=== PATIENT | male | born 1955 | race Hispanic/Latino ===

== ENCOUNTER 2020-07-28 22:22 | Observation (INO) | payer BC ==
[2020-07-28 23:43] LABS: Absolute Lymphocytes (CBC) 1.1 K/uL (0.7-4.9); Hematocrit 39.1 % (39.6-49.0); Lymphocytes % 25.1 % (15.3-44.8); MPV 8.6 fL (7.6-11.3); RBC Red Blood Cell Count 4.16 M/uL (4.33-5.43)
[2020-07-28 23:53] LABS: Protime INR 1.19
[2020-07-28] MEDS ORDERED: ASPIRIN 81 MG CHEWABLE TABLET ONE (23:53)
[2020-07-28 23:59] LABS: ALT/SGPT 25 U/L (12-78); AST/SGOT 16 U/L (15-37); Albumin 4.1 g/dL (3.4-5.0); Alkaline Phosphatase 76 U/L (45-117); BUN Blood Urea Nitrogen 11 mg/dL (7-18); Bicarbonate 31 mmol/L (21-32); Bilirubin Direct 0.1 mg/dL (0-0.2); Bilirubin Total 0.4 mg/dL (0.2-1.0); Glucose Level 94 mg/dL (74-106); Magnesium 2.4 mg/dL (1.8-2.4); NT PRO-BNP 33 pg/mL (<125); Protein, Total 7.6 g/dL (6.4-8.2); Sodium Level 140 mmol/L (136-145); Troponin (Emerg Dept Use Only) < 0.02 ng/mL (0.0-0.045)
--- NOTE | 2020-07-29 00:25 | EDPHYS ---
Physician Documentation [facility] Name: Chirag Chan Age: 64 yrs Sex: Male : 1955 Arrival Date: 07/28/2020 Time: 22:29 Bed 7 Private MD: ED Physician Yaakov Madrid HPI: 07/28 23:19 This 64 yrs old Male presents to ER via Ambulatory with complaints of High cp Blood Pressure. 23:19 The patient has elevated blood pressure and discovered this at home, with a home cp device. Onset: The symptoms/episode began/occurred this evening. Associated signs and symptoms: Pertinent positives: chest pain. 23:19 Severity of symptoms: At its worst the blood pressure was 170 mm Hg, in the emergency cp department the blood pressure is improved, 149 mm Hg. Historical: - Allergies: 22:50 No Known Allergies; bb - Home Meds: 22:50 Lisinopril Oral [Active]; bb - PMHx: 22:50 Hypertension; bb - PSHx: 22:50 None; bb - Immunization history:: Adult Immunizations up to date. - Social history:: Smoking status: Patient denies any tobacco usage or history of. Patient uses alcohol, occasionally. Patient/guardian denies using street drugs. ROS: 23:25 Constitutional: Negative for body aches, chills, fever, poor PO intake. cp 23:25 Eyes: Negative for injury, pain, redness, and discharge. cp 23:25 ENT: Negative for ear pain, difficulty swallowing, difficulty handling secretions. 23:25 Cardiovascular: Positive for chest pain, Negative for edema, palpitations. 23:25 Respiratory: Negative for cough, shortness of breath, wheezing. 23:25 Abdomen/GI: Negative for abdominal pain, nausea, vomiting, and diarrhea. 23:25 Back: Negative for radiated pain. 23:25 Neuro: Negative for altered mental status, headache, syncope, weakness. 23:25 All other systems are negative. Exam: 23:05 ECG was reviewed by the Attending Physician. cp 23:30 Constitutional: The patient appears in no acute distress, alert, awake, cp non-diaphoretic, non-toxic, well developed, well nourished. 23:30 Head/Face: Normocephalic, atraumatic. cp 23:30 Eyes: Periorbital structures: appear normal, Conjunctiva: normal, no exudate, no injection, Sclera: no appreciated abnormality, Lids and lashes: appear normal, bilaterally. 23:30 ENT: External ear(s): are unremarkable, Nose: is normal, Mouth: Lips: moist, Posterior pharynx: Airway: no evidence of obstruction, patent. 23:30 Neck: ROM/movement: is normal, is supple, without pain, no range of motions limitations. 23:30 Chest/axilla: Inspection: normal, Palpation: is normal, no crepitus, no tenderness. 23:30 Cardiovascular: Rate: normal, Rhythm: regular, Heart sounds: murmur, not appreciated, Edema: is not appreciated, JVD: is not appreciated. 23:30 Respiratory: the patient does not display signs of respiratory distress, Respirations: normal, no use of accessory muscles, no retractions, labored breathing, is not present, Breath sounds: are clear throughout, no decreased breath sounds, no stridor, no wheezing. 23:30 Abdomen/GI: Inspection: abdomen appears normal, Palpation: abdomen is soft and non-tender, in all quadrants. 23:30 Neuro: Orientation: to person, place \\T\\ time. Mentation: is normal, Cerebellar function: is grossly normal, Motor: moves all fours, strength is normal, Sensation: is normal. Vital Signs: 22:47 BP 149 / 100; Pulse 68; Resp 16 S; Temp 97.6(O); Pulse Ox 99% on R/A; Weight 78.47 kg bb (R); Height 5 ft. 9 in. (175.26 cm) (R); Pain 4/10; 07/29 00:33 BP 121 / 90; Pulse 62; Resp 16; Pulse Ox 98% ; jm8 01:24 BP 151 / 98; Pulse 58; Resp 16; Pulse Ox 99% on R/A; jm8 02:30 BP 157 / 100; Pulse 55; Resp 18; Pulse Ox 98% on R/A; jb4 03:15 BP 141 / 92; Pulse 58; Resp 16; Pulse Ox 100% on R/A; jm8 07/28 22:47 Body Mass Index 25.55 (78.47 kg, 175.26 cm) bb MDM: 07/28 23:09 Patient medically screened. cp 07/29 00:25 Data reviewed: vital signs, nurses notes, lab test result(s), EKG, radiologic studies, cp plain films. 00:25 Test interpretation: by ED physician or midlevel provider: ECG, chest xray negative for cp infiltrates. Counseling: I had a detailed discussion with the patient and/or guardian regarding: the historical points, exam findings, and any diagnostic results supporting the discharge/admit diagnosis, the presence of at least one elevated blood pressure reading (>120/80) during this emergency department visit, lab results, radiology results. 07/28 23:16 Order name: Basic Metabolic Panel; Complete Time: 00:20 07/29 00:20 Interpretation: Normal except: GFR 83. 07/28 23:16 Order name: CBC with Diff; Complete Time: 00:20 07/29 00:20 Interpretation: Normal except: RBC 4.16; HGB 13.1; HCT 39.1. 07/28 23:16 Order name: LFT's; Complete Time: 00:20 07/28 23:16 Order name: Magnesium; Complete Time: 00:20 07/28 23:16 Order name: NT PRO-BNP; Complete Time: 00:20 07/28 23:16 Order name: PT-INR; Complete Time: 00:20 07/28 23:16 Order name: Troponin (emerg Dept Use Only); Complete Time: 00:20 07/28 23:16 Order name: XRAY Chest (1 view) 07/29 01:26 Order name: COVID-19 : Document "Date of Symptom Onset" if Symptomatic. jm8 07/29 01:32 Order name: Troponin I [facility] 07/29 01:32 Order name: Troponin I [facility] 07/29 02:40 Order name: SARS-COV-2 RT PCR [facility] 07/28 23:16 Order name: EKG; Complete Time: 23:16 07/28 23:16 Order name: Cardiac monitoring; Complete Time: 23:35 07/28 23:16 Order name: EKG - Nurse/Tech; Complete Time: 23:35 07/28 23:16 Order name: IV Saline Lock; Complete Time: 23:35 07/28 23:16 Order name: Labs collected and sent; Complete Time: 23:35 07/28 23:16 Order name: O2 Per Protocol; Complete Time: 23:35 cp 07/28 23:16 Order name: O2 Sat Monitoring; Complete Time: 23:35 cp 07/29 01:21 Order name: CONS Physician Consult EDNY 07/29 01:32 Order name: Regular EDMS 07/29 01:32 Order name: EKG Electrocardiogram [facility] 07/29 01:32 Order name: EKG Electrocardiogram ED[facility] 07/29 01:32 Order name: EKG Electrocardiogram [facility] 07/29 01:32 Order name: EKG Electrocardiogram [facility] 07/29 01:32 Order name: EKG Electrocardiogram EDMS EC/14 23:05 Rate is 63 beats/min. Rhythm is regular. ME interval is normal. QRS interval is normal. cp QT interval is normal. T waves are Inverted in lead aVR. Interpreted by me. Reviewed by me. Administered Medications: 23:35 Drug: Aspirin Chewable Tablet 324 mg Route: PO; jm8 07/29 01:01 Follow up: Response: No adverse reaction jm8 01:01 Drug: Metoprolol 25 mg Route: PO; jm8 03:17 Follow up: Response: No adverse reaction 8 02:23 Drug: ProTONIX (pantoprazole) 40 mg Route: IVP; Site: right antecubital; jm8 03:15 Follow up: Response: No adverse reaction jm8 Disposition: 07/29/20 00:24 Hospitalization ordered by Maynor Graham for Observation. Preliminary diagnosis is Chest pain, unspecified. - Bed requested for Telemetry/MedSurg (observation). - Status is Observation. jm8 - Condition is Stable. - Problem is new. - Symptoms have improved. Signatures: Dispatcher [employer] EDNY Alicia Brenner RN RN Royal Mendenhall PA PA cp Chela Joseph RN RN cg Robles, Autumn ar5 Beto Fournier RN RN jm8 Corrections: (The following items were deleted from the chart) 01:45 01:28 CORONAVIRUS ordered. EDNY EDNY 02:52 00:24 Hospitalization Ordered by Maynor Graham MD for Observation. Preliminary diagnosis ar5 is Chest pain, unspecified. Bed requested for Telemetry/MedSurg (observation). Status is Observation. Condition is Stable. Problem is new. Symptoms have improved. cp 02:56 02:52 07/29/2020 00:24 Hospitalization Ordered by Maynor Graham MD for Observation. cg Preliminary diagnosis is Chest pain, unspecified. Bed requested for Telemetry/MedSurg (observation). Status is Observation. Condition is Stable. Problem is new. Symptoms have improved. ar5 03:17 02:56 07/29/2020 00:24 Hospitalization Ordered by Maynor Graham MD for Observation. jm8 Preliminary diagnosis is Chest pain, unspecified. Bed requested for Telemetry/MedSurg (observation). Status is Observation. Condition is Stable. Problem is new. Symptoms have improved. cg
--- NOTE | 2020-07-29 00:25 | ER ---
Nurse's Notes [facility] Name: Chirag Chan Age: 64 yrs Sex: Male : 1955 Arrival Date: 07/28/2020 Time: 22:29 Bed 7 Private MD: Diagnosis: Chest pain, unspecified Presentation: 07/28 22:47 Chief complaint: Patient states: he started feeling some chest pain tonight thought it bb was heartburn and took tums but it didn't help so he checked his bp which was 170s systolic which it has never been that high before. Pain is 4/10 and sternal, non-radiating. Coronavirus screen: At this time, the client does not indicate any symptoms associated with coronavirus-19. Ebola Screen: No symptoms or risks identified at this time. Initial Sepsis Screen: Does the patient meet any 2 criteria? No. Patient's initial sepsis screen is negative. Does the patient have a suspected source of infection? No. Patient's initial sepsis screen is negative. Risk Assessment: Do you want to hurt yourself or someone else? Patient reports no desire to harm self or others. Onset of symptoms was July 28, 2020. 22:47 Method Of Arrival: Ambulatory bb 22:47 Acuity: TOBY 3 bb Historical: - Allergies: 22:50 No Known Allergies; bb - Home Meds: 22:50 Lisinopril Oral [Active]; bb - PMHx: 22:50 Hypertension; bb - PSHx: 22:50 None; bb - Immunization history:: Adult Immunizations up to date. - Social history:: Smoking status: Patient denies any tobacco usage or history of. Patient uses alcohol, occasionally. Patient/guardian denies using street drugs. Screenin:37 Abuse screen: Denies threats or abuse. Denies injuries from another. Nutritional jm8 screening: No deficits noted. Tuberculosis screening: No symptoms or risk factors identified. Fall Risk None identified. Assessment: 23:36 General: Appears in no apparent distress. comfortable, Behavior is calm, cooperative, jm8 appropriate for age. Pain: Complains of pain in chest Pain currently is 3 out of 10 on a pain scale. Quality of pain is described as aching. Neuro: No deficits noted. Neuro: Level of Consciousness is awake, alert, obeys commands, Oriented to person, place, time, situation. Cardiovascular: Reports chest pain, hypertension Rhythm is sinus rhythm. Respiratory: No deficits noted. Respiratory: Airway is patent Trachea midline Respiratory effort is even, unlabored, Respiratory pattern is regular, symmetrical. GI: No deficits noted. No signs and/or symptoms were reported involving the gastrointestinal system. : No deficits noted. No signs and/or symptoms were reported regarding the genitourinary system. EENT: No deficits noted. No signs and/or symptoms were reported regarding the EENT system. Derm: No deficits noted. No signs and/or symptoms reported regarding the dermatologic system. Musculoskeletal: No deficits noted. No signs and/or symptoms reported regarding the musculoskeletal system. 07/29 03:05 Reassessment: report called to CHU Bose. jb4 Vital Signs: 07/28 22:47 BP 149 / 100; Pulse 68; Resp 16 S; Temp 97.6(O); Pulse Ox 99% on R/A; Weight 78.47 kg bb (R); Height 5 ft. 9 in. (175.26 cm) (R); Pain 4/10; 07/29 00:33 BP 121 / 90; Pulse 62; Resp 16; Pulse Ox 98% ; jm8 01:24 BP 151 / 98; Pulse 58; Resp 16; Pulse Ox 99% on R/A; jm8 02:30 BP 157 / 100; Pulse 55; Resp 18; Pulse Ox 98% on R/A; jb4 03:15 BP 141 / 92; Pulse 58; Resp 16; Pulse Ox 100% on R/A; jm8 07/28 22:47 Body Mass Index 25.55 (78.47 kg, 175.26 cm) bb ED Course: 07/28 22:29 Patient arrived in ED. am4 22:49 Triage completed. bb 22:50 Arm band placed on Patient placed in an exam room, on a stretcher, on production superintendent hydro, bb on pulse oximetry. 22:54 Royal Aburto PA is PHCP. cp 22:54 Yaakov Madrid MD is Attending Physician. cp 23:35 XRAY Chest (1 view) In Process Unspecified. EDMS 23:35 Rafiq Ojeda, CHU is Primary Nurse. jb4 23:37 Patient has correct armband on for positive identification. Bed in low position. Call jm8 light in reach. Side rails up X2. 07/29 00:23 Maynor Graham MD is Hospitalizing Provider. cp 03:16 No provider procedures requiring assistance completed. Patient admitted, IV remains in [facility] place. Administered Medications: 07/28 23:35 Drug: Aspirin Chewable Tablet 324 mg Route: PO; jm8 07/29 01:01 Follow up: Response: No adverse reaction 8 01:01 Drug: Metoprolol 25 mg Route: PO; 8 03:17 Follow up: Response: No adverse reaction [facility] 02:23 Drug: ProTONIX (pantoprazole) 40 mg Route: IVP; Site: right antecubital; [facility] 03:15 Follow up: Response: No adverse reaction 8 Outcome: 00:24 Decision to Hospitalize by Provider. cp 03:16 Admitted to Med/surg accompanied by nurse, via wheelchair, with chart, Report called to jackie Bose RN 03:16 Condition: good 03:16 Instructed on the need for admit. 03:17 Patient left the ED. jmRob Signatures: Dispatcher [employer] EDAlicia Castillo, RN RN Royal Mendenhall, MERCEDES PA Rafiq Dinero, RN RN [email or web address] Ann Calvert Joseph, RN RN jackie
[2020-07-29] MEDS ORDERED: METOPROLOL TAR 25 MG TAB ONE (01:20)
[2020-07-29] MEDS ORDERED: ONDANSETRON 4 MG/2 ML VIAL IV PRN (01:30)
[2020-07-29] MEDS ORDERED: PANTOPRAZOLE 40 MG INJ ONE (02:41)
[2020-07-29 03:35] VITALS: BMI 26.0
[2020-07-29 03:55] VITALS: O2SAT 96
[2020-07-29 06:22] VITALS: BP 168/99; TEMP 97.3
--- NOTE | 2020-07-29 07:00 | RAD REPORT ---
EXAM DESCRIPTION: RAD - Chest Single View - 07/28/2020 11:35 pm CLINICAL HISTORY: CHEST PAIN COMPARISON: None TECHNIQUE: AP portable chest image was obtained 07/28/2020 11:35 pm . FINDINGS: Lungs are clear. Heart and vasculature are normal. No measurable pleural effusion and no p neumothorax. No acute bony abnormality seen. No acute aortic findings suspected. IMPRESSION: No acute cardiopulmonary process.
--- NOTE | 2020-07-29 08:49 | P.SSS ---
Patient History Date of Service: 07/29/20 Primary Care Provider: Gladys Reason for admission: Chest pain History of Present Illness: Patient took a pumpkin seed suplement yesterday. He started having burning substernal chest pain. Non radiating. Checked his bp which was elevated in the 160's He was concerned and came to the ED. Normally he takes prevacid for reflux. However he has not had any recently. He is doing well this morning. NO chest burning. He got better with odasterone given in the ER. Normal EKG. and 2 negative troponins. Allergies No Known Allergies Allergy (Unverified 07/29/20 02:11) Home Medications: Omeprazole 20 mg PO DAILY 90 Days #90 capsule. 07/29/20 lisinopriL [Lisinopril] 10 mg PO DAILY 07/29/20 - Past Medical/Surgical History Has patient received pneumonia vaccine in the past: No Diabetic: No -: HTN - Social History Smoking Status: Never smoker Alcohol use: Yes CD- Drugs: No Caffeine use: Yes Place of Residence: Home Review of Systems 10-point ROS is otherwise unremarkable Physical Examination - Vital Signs Temperature: 97.3 F Blood Pressure: 168/99 Pulse: 60 Respirations: 18 Pulse Ox (%): 99 - Physical Exam General: Alert, In no apparent distress HEENT: Atraumatic, PERRLA, Mucous membr. moist/pink, EOMI, Sclerae nonicteric Neck: Supple, 2+ carotid pulse no bruit, No LAD, Without JVD or thyroid abnormality Respiratory: Clear to auscultation bilaterally, Normal air movement Cardiovascular: Regular rate/rhythm, Normal S1 S2 Gastrointestinal: Normal bowel sounds, No tenderness Musculoskeletal: No tenderness Integumentary: No rashes Neurological: Normal gait, Normal speech, Normal strength at 5/5 x4 extr, Normal tone, Normal affect Lymphatics: No axilla or inguinal lymphadenopathy - Studies Laboratory Data (last 24 hrs) 07/29/20 05:56: Troponin I < 0.02 07/29/20 02:10: Troponin I < 0.02 07/28/20 23:29: PT 13.7 H, INR 1.19 07/28/20 23:29: WBC 4.50, Hgb 13.1 L, Hct 39.1 L, Plt Count 240 07/28/20 23:29: Sodium 140, Potassium 4.0, BUN 11, Creatinine 0.92, Glucose 94, Magnesium 2.4, Total Bilirubin 0.4, AST 16, ALT 25, Alkaline Phosphatase 76 - Diagnosis (Problem(s)) (1) Chest pain Current Visit: Yes Status: Acute Plan: Most likely reflux. He is a good candidate for an outpatient work up. Will have him follow up with us in the office. The patient can be referred to Dr. Taylor as an outpatient Qualifiers: Chest pain type: other chest pain Qualified Code(s): R07.89 - Other chest pain; R07.8 - Other chest pain (2) GERD (gastroesophageal reflux disease) Current Visit: Yes Status: Chronic Plan: will start the patient on omeprazole Qualifiers: Esophagitis presence: without esophagitis Qualified Code(s): K21.9 - Gastro-esophageal reflux disease without esophagitis (3) HTN (hypertension) Current Visit: Yes Status: Chronic Plan: restart his home lisinopril. He has brought his home log. The patient has very well controlled bp normally. Qualifiers: Hypertension type: essential hypertension Qualified Code(s): I10 - Essential (primary) hypertension - Disposition Disposition: ROUTINE DISCHARGE Condition: GOOD Diet: Regular Activity: Ad silvia Physician Review: Patient Assessed, Agree with Above Assessment and Plan Critical Care: No Time Spent Managing Pts Care (In Minutes): 35
[2020-07-29] MEDS ORDERED: ASPIRIN EC 81 MG TAB PO SCH (09:00)
[2020-07-29] MEDS ORDERED: lisinopriL 10 MG TAB PO SCH (09:00)
--- NOTE | 2020-07-29 10:27 | EKG ---
Test Date: 2020-07-28 Test Time: 22:58:13 Legal Adviser: TRACY MEASUREMENT RESULTS: Intervals: Rate: 63 OK: 168 QRSD: 84 QT: 384 QTc: 392 [place]o: P: 51 OK: 168 QRS: 9 T: 40 INTERPRETIVE STATEMENTS: Normal sinus rhythm Normal ECG No previous ECG available for comparison Electronically Signed On 07-29-20 10:25:35 CDT by Chester Taylor
== END 2020-07-29 12:10 | disposition home or self-care (01) ==
LOC: ER 22:22 → ERHOLD 07-29 01:19 → 2ND 07-29 03:07 → INTOOBSV 07-29 07:47 → OBSVTOIN 07-29 07:47
PROVIDERS: ADMIT Internal Medicine; ATTEND Internal Medicine
DX: R07.9 Chest pain, unspecified (principal); K21.9 Gastro-esophageal reflux disease without esophagitis; I10 Essential (primary) hypertension; Z20.822 Contact with and (suspected) exposure to COVID-19
CPT/HCPCS: 36415; 71045; 80048; 80076; 83735; 83880; 84484; 85025; 85610; 93005; 96374; 99285; C9113; G0378; U0003